=== PATIENT | male | born 1995 | race Caucasian/White ===

== ENCOUNTER 2017-10-11 16:18 | Emergency (ER) | payer SELFPAY ==
[~2017-10-11] VITALS: Ht 172.7 cm; Wt 86.0 kg
[2017-10-11 18:21] VITALS: BP 135/78
== END 2017-10-11 18:23 | disposition home or self-care (01) ==
LOC: EMS 16:19
DX: S43.101A Unspecified dislocation of right acromioclavicular joint, initial encounter (principal); R03.0 Elevated blood-pressure reading, without diagnosis of hypertension; F12.90 Cannabis use, unspecified, uncomplicated; W03.XXXA Other fall on same level due to collision with another person, initial encounter; Y93.61 Activity, american tackle football; Y92.89 Other specified places as the place of occurrence of the external cause; Y99.8 Other external cause status
CPT/HCPCS: 29105; 99284